=== PATIENT | female | born 1995 | race Caucasian/White ===

== ENCOUNTER 2018-08-22 11:58 | Emergency (ER) | payer MEDICAID, OTHER ==
--- NOTE | 2018-08-22 12:20 | UC ---
FLU HPI - History of Current Complaint Stated Complaint: COLD /FLU SYMP Time Seen by Provider: 08/22/18 12:20 Discharge - Sign-Out/Discharge Documenting (check all that apply): Patient Departure All imaging exams completed and their final reports reviewed: No Studies - Discharge Plan Condition: Stable Disposition: HOME Referrals: No Primary Care Phys,NOPCP [Primary Care Provider] - - Billing Disposition and Condition Condition: STABLE Disposition: Home
[2018-08-22 12:34] VITALS: BP 129/84
--- NOTE | 2018-08-22 12:38 | UC ---
General HPI - HPI Summary HPI Summary: Pleasant 23 yo female c/o progressively worse cough, congestion over the last 2 weeks. Symptoms worsened since (today is Sun). Possible fever but not high. No GI issues, no urinary issues. No rash. No st. No rash. Reports that a few years ago had a strong reaction to albuterol inhaler, is willing to try it again. - History of Current Complaint Chief Complaint: UCRespiratory Stated Complaint: COLD /FLU SYMP Time Seen by Provider: 08/22/18 12:20 Hx Obtained From: Patient Hx Last Menstrual Period: 07/26/18 Pain Intensity: 6 - Allergy/Home Medications Allergies/Adverse Reactions: Allergies Allergy/AdvReac Type Severity Reaction Status Date / Time albuterol Allergy Severe See Comment Verified 08/22/18 12:35 shellfish derived Allergy Severe Swelling Verified 08/22/18 12:35 Of Face,Lips,& Throat PMH/Surg Hx/FS Hx/Imm Hx Previously Healthy: Yes - see hpi - Surgical History Surgical History: None - Family History Known Family History: Positive: None - Social History Alcohol Use: None Substance Use Type: None Smoking Status (MU): Never Smoked Tobacco Review of Systems All Other Systems Reviewed And Are Negative: Yes Constitutional: Positive: Other - see hpi Skin: Positive: Other - see hpi Eyes: Positive: Other - see hpi ENT: Positive: Other - see hpi Respiratory: Positive: Other - see hpi Cardiovascular: Positive: Other - see hpi Gastrointestinal: Positive: Other - see hpi Motor: Positive: Other - see hpi Neurovascular: Positive: Other - see hpi Musculoskeletal: Positive: Other: - see hpi Neurological: Positive: Other - see hpi Psychological: Positive: Negative Is Patient Immunocompromised?: No Physical Exam Triage Information Reviewed: Yes Appearance: Well-Appearing, Well-Nourished Vital Signs: Initial Vital Signs Temp 98.7 F 08/22/18 12:27 Pulse 88 08/22/18 12:27 Resp 18 08/22/18 12:27 BP 129/84 08/22/18 12:27 Pulse Ox 98 08/22/18 12:27 Vital Signs Reviewed: Yes Eye Exam: Normal ENT: Positive: Pharynx normal, TM dull, Other - MMM Neck exam: Normal Neck: Positive: Supple, Nontender, No Lymphadenopathy Respiratory Exam: Other - BS equal, full. + tight exp wheeze bilat Respiratory: Positive: No respiratory distress, No accessory muscle use Cardiovascular Exam: Normal Cardiovascular: Positive: RRR, No Murmur, Pulses Normal, Brisk Capillary Refill Abdominal Exam: Normal Abdomen Description: Positive: Nontender Bowel Sounds: Positive: Present Musculoskeletal Exam: Normal - moves x 4 ext's, gait steady Neurological Exam: Normal - grossly nonfocal Psychological Exam: Normal - conversing easily and appropriately Course/Dx - Course Course Of Treatment: Will order xopenex. Aware that side effect is possible, but she wants to try it. (n/a here at [facility]], rx ordered). Request influenza (not unreasonable,d/t recent sudden worse sx, and doesn't want to expose employees). Requests liquid/ crushable / chewable. Rx kita ac,usual narc talk. No issues reported. Reviewed coa / tx plan. Questions as posed answered to the best of my ability. - Diagnoses Provider Diagnosis: Bronchitis, Wheezing Discharge - Sign-Out/Discharge Documenting (check all that apply): Patient Departure All imaging exams completed and their final reports reviewed: No Studies - Discharge Plan Condition: Stable Disposition: HOME Patient Education Materials: Acute Bronchitis (ED), Wheezing (ED) Referrals: No Primary Care Phys,NOPCP [Primary Care Provider] - [facility] [Outside] Additional Instructions: Influenza nasal swab neg Please follow up with a primary care physician in the next couple weeks if possible. Please seek medical attention for worse or new problems. - Billing Disposition and Condition Condition: STABLE Disposition: Home
[2018-08-22] MEDS ORDERED: Levalbuterol 1.25MG/0.5ML NEB INH ONE (12:49)
[2018-08-22 12:57] LABS: Influenza A Molecular NEGATIVE (Negative); Influenza B Molecular NEGATIVE (Negative)
== END 2018-08-22 13:47 | disposition home or self-care (01) ==
LOC: UCEAST 11:58
DX: J40 Bronchitis, not specified as acute or chronic (principal); R06.2 Wheezing; Z88.8 Allergy status to other drugs, medicaments and biological substances; Z91.013 Allergy to seafood
CPT/HCPCS: 99202; A9270-GY; G0463

== ENCOUNTER 2018-08-23 15:47 | Emergency (ER) | payer MEDICAID, OTHER ==
[2018-08-23 16:02] VITALS: BP 120/77
--- NOTE | 2018-08-23 16:03 | UC ---
Respiratory Complaint HPI - HPI Summary HPI Summary: 23 yo female presents with cough. She was seen her yesterday and placed on azithromycin, xopenex, and robitussin. Today she tells me that she feels she is not improved. She admits that she is nervous because she has a lot of classmates that have been diagnosed with pneumonia and she is primarily concerned about this. She took the medications as prescribed yesterday. Denies fever, chills, sinus symptoms, SOB, chest pain. - History of Current Complaint Chief Complaint: UCRespiratory Stated Complaint: CHEST CONGESTION Time Seen by Provider: 08/23/18 16:02 Hx Obtained From: Patient Hx Last Menstrual Period: 07/25/2018 Onset/Duration: Gradual Onset Severity Initially: Moderate Severity Currently: Moderate Pain Intensity: 7 Pain Scale Used: 0-10 Numeric Character: Cough: Nonproductive - Allergies/Home Medications Allergies/Adverse Reactions: Allergies Allergy/AdvReac Type Severity Reaction Status Date / Time albuterol Allergy Severe See Comment Verified 08/22/18 12:35 shellfish derived Allergy Severe Swelling Verified 08/22/18 12:35 Of Face,Lips,& Throat PMH/Surg Hx/FS Hx/Imm Hx - Additional Past Medical History Additional PMH: None - Surgical History Surgical History: None - Family History Known Family History: Positive: None - Social History Occupation: Student Lives: With Family Alcohol Use: None Substance Use Type: None Smoking Status (MU): Never Smoked Tobacco Review of Systems All Other Systems Reviewed And Are Negative: Yes Constitutional: Positive: Negative Skin: Positive: Negative Eyes: Positive: Negative ENT: Positive: Negative Respiratory: Positive: Cough Cardiovascular: Positive: Negative Gastrointestinal: Positive: Negative Neurovascular: Positive: Negative Neurological: Positive: Negative Psychological: Positive: Negative Physical Exam - Summary Physical Exam Summary: GENERAL: NAD. WDWN. No pain distress. SKIN: No rashes, sores, lesions, or open wounds. HEENT: Head: AT/NC Eyes: EOM intact. Conjunctiva clear without inflammation or discharge. Ears: Hearing grossly normal. TMs intact, no bulging, erythema, or edema. Nose: Nasal mucosa pink and moist. NTTP maxillary and frontal sinus. Throat: Posterior oropharynx without exudates, erythema, or tonsillar enlargement. Uvula midline. NECK: Supple. Nontender. No lymphadenopathy. CHEST: CTAB. No r/r/w. No accessory muscle use. Breathing comfortably and in no distress. CV: RRR. Without m/r/g. Pulses intact. Cap refill <2seconds NEURO: Alert. PSYCH: Age appropriate behavior. Triage Information Reviewed: Yes Vital Signs: Initial Vital Signs Temp 97.9 F 08/23/18 15:56 Pulse 98 08/23/18 15:56 Resp 16 08/23/18 15:56 BP 120/77 08/23/18 15:56 Pulse Ox 100 08/23/18 15:56 Vital Signs Reviewed: Yes Respiratory Course/Dx - Course Course Of Treatment: CXR: IMPRESSION: LEFT LOWER LOBE INFILTRATE SUGGESTIVE OF PNEUMONIA. Discussed with pt. Due to pt subjectively not feeling any improvement, she was given ceftriaxone 1gm IM in the clinic and advised to continue her medications as previously prescribed. If symptoms do not improve to go to the ED. - Differential Dx/Diagnosis Provider Diagnosis: LLL pneumonia Discharge - Sign-Out/Discharge Documenting (check all that apply): Patient Departure All imaging exams completed and their final reports reviewed: Yes - Discharge Plan Condition: Stable Disposition: HOME Prescriptions: Benzonatate CAP* [Tessalon 100 MG CAP*] 100 mg PO TID PRN #21 cap PRN Reason: Cough Patient Education Materials: Community Acquired Pneumonia (DC) Referrals: No Primary Care Phys,NOPCP [Primary Care Provider] - Additional Instructions: If you develop a fever, shortness of breath, chest pain, new or worsening symptoms - please call your PCP or go to the ED. 1) Continue your medications as prescribed. - Billing Disposition and Condition Condition: STABLE Disposition: Home
[2018-08-23] MEDS ORDERED: cefTRIAXone VIAL(*) 1,000 MG VIAL IM ONE (16:35)
[2018-08-23] MEDS ORDERED: Lidocaine 1%* 5 ML VIAL INJ ONE (16:35)
== END 2018-08-23 17:10 | disposition home or self-care (01) ==
LOC: UCEAST 15:47
DX: J18.1 Lobar pneumonia, unspecified organism (principal); Z91.013 Allergy to seafood; Z88.8 Allergy status to other drugs, medicaments and biological substances
CPT/HCPCS: 71046; 96372; 99212; G0463; J0696

== ENCOUNTER 2018-09-21 08:05 | Emergency (ER) | payer OTHER ==
[2018-09-21 08:25] VITALS: BP 138/80
--- NOTE | 2018-09-21 09:47 | UC ---
Respiratory Complaint HPI - HPI Summary HPI Summary: PATIENT HAD LEFT LOWER LOBE PNEUMONIA SEEN ON X-RAY ONE MONTH AGO 08/23/18. IMPROVED WITH ANTIBIOTIC THERAPY. ABOUT A WEEK AGO STARTED COUGHING AGAIN. FEELS UNABLE TO TAKE A DEEP BREATH SHE STARTS COUGHING. NO FEVER, NAUSEA/ VOMITING. - History of Current Complaint Chief Complaint: UCRespiratory Stated Complaint: WHEEZING COUGH SOB Time Seen by Provider: 09/21/18 09:12 Hx Obtained From: Patient Hx Last Menstrual Period: 09/13/18 Onset/Duration: Gradual Onset, Lasting Days, Still Present Timing: Constant Severity Initially: Moderate Severity Currently: Moderate Pain Intensity: 2 Pain Scale Used: 0-10 Numeric Character: Cough: Nonproductive Aggravating Factors: Nothing Alleviating Factors: Nothing Associated Signs And Symptoms: Positive: Dyspnea, Pleuritic Chest Pain. Negative: Fever, Wheezing, URI - Allergies/Home Medications Allergies/Adverse Reactions: Allergies Allergy/AdvReac Type Severity Reaction Status Date / Time albuterol Allergy Severe See Comment Verified 09/21/18 08:25 shellfish derived Allergy Severe Swelling Verified 09/21/18 08:25 Of Face,Lips,& Throat PMH/Surg Hx/FS Hx/Imm Hx GI/ History: Gastroesophageal Reflux - Surgical History Surgical History: None - Family History Known Family History: Positive: None - Social History Alcohol Use: Occasionally Substance Use Type: None Smoking Status (MU): Never Smoked Tobacco Review of Systems All Other Systems Reviewed And Are Negative: Yes Constitutional: Positive: Negative ENT: Positive: Negative Respiratory: Positive: Shortness Of Breath, Cough Cardiovascular: Positive: Negative Gastrointestinal: Positive: Negative Physical Exam Triage Information Reviewed: Yes Appearance: Well-Appearing, No Pain Distress, Well-Nourished, Obese Vital Signs: Initial Vital Signs Temp 97.7 F 09/21/18 08:20 Pulse 97 09/21/18 08:20 Resp 18 09/21/18 08:20 BP 138/80 09/21/18 08:20 Pulse Ox 99 09/21/18 08:20 Vital Signs Reviewed: Yes Eyes: Positive: Conjunctiva Clear ENT: Positive: Hearing grossly normal, Pharynx normal, TMs normal Neck: Positive: Supple, Nontender, No Lymphadenopathy Respiratory: Positive: Lungs clear, No respiratory distress, No accessory muscle use, Other: - SPEAKING EASILY IN FULL SENTENCES. DRY COUGH Cardiovascular Exam: Normal Abdomen Description: Positive: Soft Musculoskeletal: Positive: No Edema Neurological: Positive: Alert Psychological: Positive: Age Appropriate Behavior Skin: Negative: Rashes Diagnostics - Radiology CXR Radiology Interpretation Completed By: Radiologist Summary of Radiographic Findings: NO ACTIVE CARDIOPULMONARY DISEASE. Respiratory Course/Dx - Differential Dx/Diagnosis Provider Diagnosis: Acute bronchitis Discharge - Sign-Out/Discharge Documenting (check all that apply): Patient Departure All imaging exams completed and their final reports reviewed: Yes - Discharge Plan Condition: Stable Disposition: HOME Prescriptions: PrednisoLONE 3 MG/ML ORAL.SOLU [PrednisoLONE LIQ 3 MG/ML 5 ml UDC*] 15 ml PO DAILY #75 ml Patient Education Materials: Acute Bronchitis (ED) Referrals: [facility] [Outside] - If Needed No Primary Care Phys,NOPCP [Primary Care Provider] - Additional Instructions: CHEST XRAY TODAY SHOWS RESOLUTION OF YOUR PNEUMONIA. YOUR CURRENT SYMPTOMS ARE LIKELY VIRALLY MEDIATED AND SHOULD RESOLVE ON THEIR OWN WITH TIME. NO INDICATION FOR ANTIBIOTICS AT PRESENT. REST, HYDRATE, OTC MEDS NEEDED. WILL TREAT WITH PREDNISOLONE TO HELP WITH AIRWAY INFLAMMATION. SEEK FOLLOW-UP IF YOU ARE NOT IMPROVING OVER THE NEXT 1-2 WEEKS. CALL THE NUMBER BELOW FOR ASSISTANCE IN ESTABLISHING WITH A PCP An additional resource available to assist in finding the appropriate physician for your health care needs is the [facility] ([facility]). You may contact them by calling [phone]. - Billing Disposition and Condition Condition: STABLE Disposition: Home
== END 2018-09-21 10:46 | disposition home or self-care (01) ==
LOC: UCEAST 08:05
DX: J20.9 Acute bronchitis, unspecified (principal); Z88.8 Allergy status to other drugs, medicaments and biological substances; Z91.013 Allergy to seafood
CPT/HCPCS: 71046; 99212; G0463